=== PATIENT | female | born 1950 | race Caucasian/White ===

== ENCOUNTER 2021-01-22 08:05 | Day surgery (SDC) | payer OTHER ==
[2021-01-19 12:16] VITALS: BMI 21.1
[2021-01-22] MEDS ORDERED: LIDOCAINE HCL/PF 2% SDV 5ML VIAL ONE (08:09)
[2021-01-22] MEDS ORDERED: PROPOFOL 20 ML ONE ×4 (08:09)
[2021-01-22 09:21] VITALS: TEMP 97.7
[2021-01-22 10:22] VITALS: BP 124/78; PULSE 77
== END 2021-01-22 10:23 | disposition home or self-care (01) ==
LOC: FASU-ENDO 08:05
PROVIDERS: ATTEND Internal Medicine Gastroenterology
PROC: 0DBH8ZX Excision of Cecum, Via Natural or Artificial Opening Endoscopic, Diagnostic (ICD-10-PCS; principal; 2021-01-22 08:43)
DX: Z86.010 Personal history of colon polyps (principal); D12.0 Benign neoplasm of cecum; K64.0 First degree hemorrhoids
CPT/HCPCS: 88305-TC

== ENCOUNTER 2021-05-06 09:34 | Day surgery (SDC) | payer OTHER ==
[2021-04-29 16:54] VITALS: BMI 20.3
[2021-05-06] MEDS: CYCLOPENTOLATE 2% OPHTH SOLN 2 ML BOTTLE ONE ×3 (09:55→10:05)
[2021-05-06] MEDS: CIPROFLOXACIN 0.3% EYE DROPS 5 ML BOTTLE ONE ×3 (09:55→10:05)
[2021-05-06] MEDS: PHENYLEPHRINE 2.5% OPHTH SOLN 15 ML BOTTLE ONE ×3 (09:55→10:05)
[2021-05-06] MEDS: TROPICAMIDE 1% OPHTH SOLN 15 ML BOTTLE ONE ×3 (09:55→10:05)
[2021-05-06] MEDS ORDERED: MIDAZOLAM HCL 2 MG/2 ML SINGLE DOSE VIAL ONE (10:57)
[2021-05-06] MEDS ORDERED: NEO/POLYMYX B SULF/DEXAMETH OPHTHALMIC 5ML BOTTLE ONE (12:31)
[2021-05-06] MEDS ORDERED: BSS (NA/CA/MG/K) BALANCED SALT SOLUTION OPHTH SOLN 15 ML BOTTLE ONE (12:31)
[2021-05-06] MEDS ORDERED: LIDOCAINE 1% P/F 10 MG/ML VIAL ONE (12:31)
[2021-05-06] MEDS ORDERED: CARBACHOL 0.01% INTRA-OCULAR 1.5 ML VIAL ONE (12:31)
[2021-05-06] MEDS ORDERED: TETRACAINE 0.5% OPHTH SOLN 2 ML BOTTLE ONE (12:31)
[2021-05-06 12:57] VITALS: PULSE 72; TEMP 98.3
[2021-05-06 13:00] VITALS: BP 106/72
== END 2021-05-06 12:30 | disposition home or self-care (01) ==
LOC: FASU 09:34
PROVIDERS: ATTEND Ophthalmology
PROC: 08RJ3JZ Replacement of Right Lens with Synthetic Substitute, Percutaneous Approach (ICD-10-PCS; principal; 2021-05-06 11:03)
DX: H26.8 Other specified cataract (principal)

== ENCOUNTER 2021-08-19 08:59 | Day surgery (SDC) | payer OTHER ==
[2021-06-17 15:56] VITALS: BMI 20.3
[2021-08-19] MEDS ORDERED: TETRACAINE 0.5% OPHTH SOLN 2 ML BOTTLE ONE (09:42)
[2021-08-19] MEDS ORDERED: BSS (NA/CA/MG/K) BALANCED SALT SOLUTION OPHTH SOLN 15 ML BOTTLE ONE ×2 (09:42→12:00)
[2021-08-19] MEDS ORDERED: CARBACHOL 0.01% INTRA-OCULAR 1.5 ML VIAL ONE ×2 (09:42→11:14)
[2021-08-19] MEDS ORDERED: EPINEPHrine/PF 1 MG/1 ML (1:1,000) AMPULE ONE (09:42)
[2021-08-19] MEDS ORDERED: LIDOCAINE HCL/PF 1% SDV 5ML VIAL ONE (09:42)
[2021-08-19] MEDS ORDERED: NEO/POLYMYX B SULF/DEXAMETH OPHTHALMIC 5ML BOTTLE ONE ×2 (09:42→11:17)
[2021-08-19] MEDS: CYCLOPENTOLATE 2% OPHTH SOLN 2 ML BOTTLE ONE ×3 (09:55→10:05)
[2021-08-19] MEDS: TROPICAMIDE 1% OPHTH SOLN 15 ML BOTTLE ONE ×3 (09:55→10:05)
[2021-08-19] MEDS: PHENYLEPHRINE 2.5% OPHTH SOLN 15 ML BOTTLE ONE ×3 (09:55→10:05)
[2021-08-19] MEDS: CIPROFLOXACIN 0.3% EYE DROPS 5 ML BOTTLE ONE ×3 (09:55→10:05)
[2021-08-19 09:58] VITALS: TEMP 97.7
[2021-08-19] MEDS ORDERED: MIDAZOLAM HCL 2 MG/2 ML SINGLE DOSE VIAL ONE (11:17)
[2021-08-19] MEDS ORDERED: ERYTHROMYCIN 0.5% OPHTHALMIC OINTMENT 3.5 GM TUBE ONE (11:50)
[2021-08-19 12:33] VITALS: BP 118/69; PULSE 85
== END 2021-08-19 12:50 | disposition home or self-care (01) ==
LOC: FASU 08:59
PROVIDERS: ATTEND Ophthalmology
PROC: 08RK3JZ Replacement of Left Lens with Synthetic Substitute, Percutaneous Approach (ICD-10-PCS; principal; 2021-08-19 11:28)
DX: H26.8 Other specified cataract (principal)
CPT/HCPCS: 66984; V2632

== ENCOUNTER 2022-01-15 11:39 | Emergency (ER) | payer OTHER ==
[2022-01-15 11:56] VITALS: TEMP 98.6; BMI 19.0
[2022-01-15 12:30] LABS: HEMATOCRIT 41.7 % (32.4-45.2); HEMOGLOBIN 14.5 G/dL (10.7-15.3); MCH 34.9 pg (25.7-33.7); MCHC 34.7 g/dl (32.0-36.0); MEAN CELL VOLUME 100.4 fl (80-96); PLATELET COUNT 377.3 10^3/uL (134-434); RBC 4.15 10^6/uL (3.60-5.2); RDW 13.5 % (11.6-15.6); WHITE BLOOD COUNT 6.5 10^3/uL (4.0-10.8)
[2022-01-15 12:41] LABS: CREATININE 0.7 mg/dl (0.55-1.3)
[2022-01-15 12:42] LABS: BILIRUBIN,TOTAL 0.8 mg/dl (0.2-1); TOT PROT 6.7 g/dl (6.4-8.2)
[2022-01-15 12:43] LABS: PLATELET ESTIMATE ADEQUATE
[2022-01-15 13:52] VITALS: BP 125/80; PULSE 74; RESP 16
== END 2022-01-15 14:21 | disposition home or self-care (01) ==
LOC: FER 11:39
DX: R42 Dizziness and giddiness (principal); S09.90XA Unspecified injury of head, initial encounter
CPT/HCPCS: 36415; 70450-TC; 71046-TC-FY; 72125-TC; 80053; 81003; 84484; 85025; 87086; 93005; 99285-25

== ENCOUNTER 2022-04-28 12:09 | Observation (INO) | payer OTHER ==
[2022-04-28] MEDS ORDERED: SODIUM CHLORIDE 0.9% 500 ML INFUS.BAG IV ONE (12:18)
[2022-04-28] MEDS ORDERED: dilTIAZem HCL 50 MG/10 ML - 10 ML VIAL IVPUSH ONE (12:19)
[2022-04-28] MEDS ORDERED: dilTIAZem HCL 125 MG/25 ML - 25 ML VIAL ONE (12:43)
[2022-04-28 12:52] LABS: INR 0.98 (0.83-1.09); PROTHROMBIN TIME (PATIENT) 11.3 SEC (9.7-13.0)
[2022-04-28 12:55] LABS: ACTIVATED PTT 29.5 SECONDS (25.2-36.5)
[2022-04-28 13:02] LABS: HEMATOCRIT 48.2 % (32.4-45.2); HEMOGLOBIN 16.7 G/dL (10.7-15.3); MCH 34.5 pg (25.7-33.7); MCHC 34.5 g/dl (32.0-36.0); MEAN CELL VOLUME 100.1 fl (80-96); MEAN PLT VOLUME 6.8 fl (7.5-11.1); PLATELET COUNT 388.2 10^3/uL (134-434); RBC 4.82 10^6/uL (3.60-5.2); RDW 13.1 % (11.6-15.6); WHITE BLOOD COUNT 10.8 10^3/uL (4.0-10.8)
[2022-04-28 13:06] LABS: ALBUMIN 4.2 g/dl (3.4-5.0); BILIRUBIN,TOTAL 0.8 mg/dl (0.2-1); CALCIUM 9.2 mg/dl (8.5-10); CREATININE 0.8 mg/dl (0.55-1.3); MAGNESIUM 1.9 mg/dL (1.8-2.4); TOT PROT 7.1 g/dl (6.4-8.2)
[2022-04-28] MEDS ORDERED: dilTIAZem HCL 60 MG TABLET PO ONE (13:08)
[2022-04-28] MEDS ORDERED: dilTIAZem HCL 30 MG TABLET ONE (13:21)
[2022-04-28] MEDS ORDERED: ENOXAPARIN NA (PORCINE) 60 MG/0.6 ML DISP.SYRIN SQ SCH (15:20)
[2022-04-28 16:26] VITALS: BMI 14.9
[2022-04-28] MEDS ORDERED: ZOLPIDEM TARTRATE 5 MG TABLET PO PRN (17:31)
[2022-04-28] MEDS ORDERED: ALPRAZolam 1 MG TABLET PO PRN (17:31)
[2022-04-28] MEDS: POLYETHYLENE GLYCOL (HEALTHYLAX) 3350 17 GM PACKET PO SCH ×2 (18:39→21:23)
[2022-04-28] MEDS: dilTIAZem HCL 60 MG TABLET PO SCH ×2 (18:39→23:31)
[2022-04-28] MEDS: MULTIVITAMINS (DAILY MVI) TABLET (FP) PO SCH (18:39)
[2022-04-28 21:04] LABS: PLATELET ESTIMATE ADEQUATE
[2022-04-28] MEDS: SENNOSIDES 8.6MG TABLET (FP) PO SCH (21:23)
[2022-04-28] MEDS: DOCUSATE SODIUM 100 MG CAPSULE (FP) PO SCH (21:23)
[2022-04-28] MEDS: APIXABAN 5 MG TABLET PO SCH (21:23)
[2022-04-28] MEDS ORDERED: traZODone HCL 50 MG TABLET (FP) PO SCH (22:00)
[2022-04-28 23:26] LABS: URINE BARBITURATES NEGATIVE (NEGATIVE)
[2022-04-28 23:27] LABS: METHADONE, UR NEGATIVE (NEGATIVE)
[2022-04-28 23:28] LABS: OPIATES, URI NEGATIVE (NEGATIVE); PHENCYCLIDINE,URINE NEGATIVE (NEGATIVE)
[2022-04-28 23:31] LABS: COCAINE, UR NEGATIVE (NEGATIVE); URINE AMPHETAMINES NEGATIVE (NEGATIVE); URINE BENZODIAZEPINES POSITIVE (NEGATIVE)
[2022-04-29] MEDS: dilTIAZem HCL 60 MG TABLET PO SCH (06:35)
[2022-04-29] MEDS: DOCUSATE SODIUM 100 MG CAPSULE (FP) PO SCH (06:36)
[2022-04-29 07:51] LABS: ALBUMIN 3.6 g/dl (3.4-5.0); BILIRUBIN,TOTAL 0.9 mg/dl (0.2-1); CREATININE 0.7 mg/dl (0.55-1.3); TOT PROT 6.2 g/dl (6.4-8.2)
[2022-04-29 09:15] VITALS: BP 99/68; PULSE 79; RESP 18; TEMP 98.4
[2022-04-29] MEDS: POLYETHYLENE GLYCOL (HEALTHYLAX) 3350 17 GM PACKET PO SCH (09:44)
[2022-04-29] MEDS: APIXABAN 5 MG TABLET PO SCH (09:44)
[2022-04-29] MEDS: MULTIVITAMINS (DAILY MVI) TABLET (FP) PO SCH (09:44)
[2022-04-29] MEDS: SENNOSIDES 8.6MG TABLET (FP) PO SCH (09:44)
[2022-04-29 10:41] LABS: EOS % 3.1 % (0-4.5); HEMATOCRIT 40.4 % (32.4-45.2); HEMOGLOBIN 13.8 GM/dL (10.7-15.3); LYMPH % 27.4 % (8-40); MCH 34.6 pg (25.7-33.7); MCHC 34.2 g/dl (32.0-36.0); MEAN CELL VOLUME 101.2 fl (80-96); MEAN PLT VOLUME 7.3 fl (7.5-11.1); MONO % 10.6 % (3.8-10.2); NEUT % 57.9 % (42.8-82.8); PLATELET COUNT 369 10^3/uL (134-434); RBC 3.99 M/mm3 (3.60-5.2); RDW 12.7 % (11.6-15.6); WHITE BLOOD COUNT 7.7 K/mm3 (4.0-10.0)
[2022-04-29] MEDS ORDERED: VILAZODONE HYDROCHLORIDE 20 MG TABLET PO SCH (12:00)
== END 2022-04-29 12:57 | disposition home or self-care (01) ==
LOC: FER 12:09 → FM/S 13:13 → INTOOBSV 15:19 → OBSVTOIN 15:19 → FM/S 16:03
PROC: 3E033GC Introduction of Other Therapeutic Substance into Peripheral Vein, Percutaneous Approach (ICD-10-PCS; principal; 2022-04-28)
PROC: 3E023GC Introduction of Other Therapeutic Substance into Muscle, Percutaneous Approach (ICD-10-PCS; 2022-04-28)
PROC: 3E0337Z Introduction of Electrolytic and Water Balance Substance into Peripheral Vein, Percutaneous Approach (ICD-10-PCS; 2022-04-28)
DX: I48.91 Unspecified atrial fibrillation (principal); K59.09 Other constipation; F41.8 Other specified anxiety disorders; Z87.891 Personal history of nicotine dependence; Z91.041 Radiographic dye allergy status; Z91.013 Allergy to seafood; E46 Unspecified protein-calorie malnutrition; D75.89 Other specified diseases of blood and blood-forming organs
CPT/HCPCS: 0241U-QW; 36415; 71045-TC-FY; 80053; 80307; 82436; 82607; 82746; 83735; 83930; 83935; 84133; 84300; 84439; 84443; 84445; 84481; 84484; 85025; 85027; 85610; 85730; 86376; 86803; 93005; 93306-TC; 96372; 96374; 99285-25; G0378